=== PATIENT | male | born 1995 | race Caucasian/White ===

== ENCOUNTER 2021-05-28 20:43 | Emergency (ER) | payer BC ==
[2021-05-28] MEDS ORDERED: HYDROmorphone 0.5 MG/0.5 ML Syringe IVPUSH ONE (21:13)
[2021-05-28] MEDS ORDERED: Sodium Chloride 0.9% 10 ML Syringe FLUSH PRN (21:13)
[2021-05-28] MEDS ORDERED: Ketorolac 30 MG/ML SDV IVPUSH SCH (21:15)
[2021-05-28] MEDS ORDERED: Sodium Chloride 0.9% 1,000 ML IV SCH (21:15)
--- NOTE | 2021-05-28 21:19 | EDM.PDOC ---
ED HPI GENERAL MEDICAL PROBLEM - General Chief Complaint: Upper Extremity Injury/Pain Stated Complaint: DISLOCATED RIGHT SHOULDER Time Seen by Provider: 05/28/21 20:52 Source of Information: Reports: Patient, RN Notes Reviewed - History of Present Illness INITIAL COMMENTS - FREE TEXT/NARRATIVE: 26 yr old male comes in with dislocated R shoulder. He states he was playing softball, was sliding into [address] base and somehow dislocated the shoulder. No hx or prior dislocation. No other area of injury. No known medical problems. He had a taco for dinner about 2 3/4 hrs ago. Right Shoulder Pain Score (Numeric/FACES): 3 - Related Data Allergies Allergy/AdvReac Type Severity Reaction Status Date / Time No Known Allergies Allergy Verified 05/28/21 21:01 Home Meds: Home Meds Hydrocodone/Acetaminophen [Hydrocodone-Acetamin 5-325 mg] 1 each PO Q6HR PRN #14 tab 05/28/21 [Rx] Social & Family History - Tobacco Use Tobacco Use Status *Q: Never Tobacco User Second Hand Smoke Exposure: No - Caffeine Use Caffeine Use: Reports: Coffee - Recreational Drug Use Recreational Drug Use: No Review of Systems - Review of Systems Review Of Systems: See Below Constitutional: Reports: No Symptoms Respiratory: Denies: Shortness of Breath Cardiovascular: Denies: Chest Pain GI/Abdominal: Denies: Abdominal Pain, Nausea, Vomiting Musculoskeletal: Reports: Shoulder Pain Skin: Reports: No Symptoms Neurological: Denies: Numbness, Tingling, Weakness ED EXAM, GENERAL - Physical Exam Exam: See Below General Appearance: Alert, Moderate Distress Head: Atraumatic Neck: Supple Respiratory/Chest: No Respiratory Distress, Lungs Clear, Normal Breath Sounds Cardiovascular: Regular Rate, Rhythm Extremities: Limited Range of Motion (RUE), Other (lack of fullness lateral R shoulder, fullness anteriorly compatable with ant. dislocation, R clavicle is nontender, R upper arm is nontender) Neurological: Alert, Oriented, No Motor/Sensory Deficits ED TRAUMA EXTREMITY PROCEDURES - Joint Reduction Shoulder Sedation: Other (Pt was given 100 ug fentanyl IV, versed 1 mg IV ) Technique: Other (external rotation with the help of Dr Zuluaga) Post-Reduction Imaging: Completely Reduced Course - Vital Signs Last Recorded V/S: Last Vital Signs Temp 97 F 05/28/21 20:51 Pulse 86 05/28/21 20:51 Resp 20 06/30/21 20:51 BP 134/77 05/28/21 20:51 Pulse Ox 98 05/28/21 20:51 - Orders/Labs/Meds Meds: Medications Discontinued Medications Generic Name Dose Route Start Last Admin Trade Name Vitalyq PRN Reason Stop Dose Admin Fentanyl 100 mcg 05/28/21 21:50 05/28/21 22:00 Fentanyl 100 Mcg/2 Ml Sdv IVPUSH 05/28/21 21:51 100 mcg ONETIME ONE Administration Hydromorphone HCl 0.5 mg 05/28/21 21:13 05/28/21 21:26 Hydromorphone 0.5 Mg/0.5 Ml Syringe IVPUSH 05/28/21 21:14 0.5 mg ONETIME ONE Administration Sodium Chloride 1,000 mls @ 150 mls/hr 05/28/21 21:15 05/28/21 21:23 Normal Saline IV 150 mls/hr ASDIRECTED GENNY Administration Ketorolac Tromethamine 30 mg 05/28/21 21:15 05/28/21 21:23 Ketorolac 30 Mg/Ml Sdv IVPUSH 30 mg ONETIME GENNY Administration Midazolam HCl 2 mg 05/28/21 21:49 05/28/21 22:02 Midazolam 1 Mg/Ml 2 Ml Sdv IVPUSH 05/28/21 21:50 2 mg ONETIME ONE Administration Sodium Chloride 10 ml 05/28/21 21:13 05/28/21 21:24 Sodium Chloride 0.9% 10 Ml Syringe FLUSH 10 ml ASDIRECTED PRN Administration Keep Vein Open - Re-Assessments/Exams Free Text/Narrative Re-Assessment/Exam: 05/28/21 21:51. X rays of shoulder show ant. dislocation, no fx. Departure - Departure Time of Disposition: 22:47 Disposition: Home, Self-Care 01 Condition: Fair Clinical Impression: Shoulder joint dislocation - Discharge Information Prescriptions: Hydrocodone/Acetaminophen [Hydrocodone-Acetamin 5-325 mg] 1 each PO Q6HR PRN #14 tab PRN Reason: Pain Instructions: Shoulder Dislocation, [id number] Referrals: Tong Sage MD [Primary Care Provider] - Forms: ED Department Discharge Additional Instructions: Shoulder immobilizer, start with very gentle circular range of motion exercises in about 4 to 5 days so you do not get a stiff frozen shoulder. I do recomend seeing a physical therapist Wednesday or early next week to help set up a rehab program. Call Physical Therapist of your choice for appointment. [facility] [place] at [facility] strongly recomended Tylenol alternating with advil or ibuprofen as needed for discomfort. Hydrocodone if needed for severe pain. Ice packs q 2 to 4 hr when awake as neede. Do not drive when taking hydrocodone. Rest R arm and shoulder. This will take 4 to 6 weeks to heal. Increase activity very slowly as tolerated. Sepsis Event Note (ED) - Evaluation Sepsis Screening Result: No Definite Risk
[2021-05-28] MEDS ORDERED: Midazolam 1 MG/ML 2 ML SDV IVPUSH ONE (21:49)
[2021-05-28] MEDS ORDERED: fentaNYL 100 MCG/2 ML SDV IVPUSH ONE (21:50)
--- NOTE | 2021-05-29 08:11 | CR ---
Right shoulder: 2 views of the right shoulder were obtained. Comparison: No prior shoulder study is available. Right shoulder dislocation is seen anteriorly in a subcoracoid location. Acromioclavicular joint appears within normal limits. No discrete fracture or other abnormality is appreciated. Impression: 1. Dislocated right shoulder as described above. Diagnostic code #3
--- NOTE | 2021-05-29 08:12 | CR ---
Right shoulder: Single AP view of the right shoulder was obtained. Comparison: Prior shoulder study performed on the same day (9:28 PM). Previous dislocation has been reduced. Glenohumeral alignment appears normal. No discrete fracture or other bony abnormality is appreciated. Impression: 1. Unremarkable AP right shoulder study. 2. Prior dislocation has been reduced. Diagnostic code #1
== END 2021-05-28 22:57 | disposition home or self-care (01) ==
LOC: JD.ED 20:43
DX: S43.014A Anterior dislocation of right humerus, initial encounter (principal); X58.XXXA Exposure to other specified factors, initial encounter; Y93.64 Activity, baseball
CPT/HCPCS: 23650; 73020; 73030; 96374; 96375; 99283; J1170; J1885; J2250; J3010; J7030; 23655